=== PATIENT | female | born 1975 | race African-American/Black ===

== ENCOUNTER 2023-06-25 06:32 | Inpatient (IN) | payer MEDICAID ==
[2023-06-25] VITALS (12 sets, daily range): BP systolic 126–130; BP diastolic 82–85; PULSE 63–107; RESP 14–20; TEMP 98.2–98.9; O2SAT 95–99
[~2023-06-25] VITALS: Ht 177.8 cm; Wt 70.1 kg
[2023-06-25 07:27] LABS: Basophils # (auto) 0 10 ^3/uL (0-0.2); Basophils % (auto) 0.3 % (0.0-2.0); Eosinophils # (auto) 0 10 ^3/uL (0-0.8); Eosinophils % (auto) 0.2 % (0.0-7.0); Hematocrit 40.7 % (36.0-46.0); Hemoglobin 13.3 g/dL (12.2-16.2); Lymphocytes # (auto) 0.8 10 ^3/uL (0.4-5.4); Lymphocytes % (auto) 7.7 % (10.0-50.0); Mean Corpuscular Hemoglobin 28.5 pg (28.0-32.0); Mean Corpuscular Hgb Conc. 32.7 g/dL (32.0-36.0); Mean Corpuscular Volume 87.3 fL (80.0-100.0); Monocytes # (auto) 0.7 10 ^3/uL (0-1.3); Monocytes % (auto) 6.9 % (0.0-12.0); Neutrophils # (auto) 8.4 10 ^3/uL (1.6-8.6); Neutrophils % (auto) 84.9 % (37.0-80.0); Nucleated Red Blood Cells % 0.2 %; Red Blood Cells 4.66 10^6/uL (4.0-5.20); Red Cell Distribution Width 18.3 % (11.8-14.3); White Blood Cell 9.9 10^3/uL (4.4-10.8)
[2023-06-25 08:01] LABS: Alanine Aminotransferase 34 U/L (7-40); Albumin 4.4 g/dL (3.2-4.8); Alkaline Phosphatase 422 U/L (46-116); Anion Gap 6 (5-15); Aspartate Aminotransferase 29 U/L (13-40); BUN/Creatinine Ratio 21.5 (10.0-20.0); Blood Urea Nitrogen 17 mg/dL (9-23); Calcium 9.8 mg/dL (8.5-10.1); Carbon Dioxide 32 mmol/L (20-30); Chloride 97 mmol/L (98-107); Glucose 171 mg/dL (74-106); Potassium 4.2 mmol/L (3.5-5.1); Sodium 135 mmol/L (136-145)
[2023-06-25 08:02] LABS: Bilirubin, Total 0.6 mg/dL (0.2-1.0); Total Protein 6.9 g/dL (5.7-8.2)
[2023-06-25] MEDS ORDERED: cefTRIAXone 1GM/50ML D5W 50 ML IV ONE ×2 (08:30→11:01)
[2023-06-25] MEDS ORDERED: AZITHROMYCIN 500MG/ 250ML 250 ML IV ONE ×2 (08:30→11:01)
[2023-06-25] MEDS ORDERED: SENN8.6T83 PO (09:44)
[2023-06-25] MEDS ORDERED: ALBU108A5 PO (09:44)
[2023-06-25] MEDS ORDERED: ESCI5TAB20 PO (09:44)
[2023-06-25] MEDS ORDERED: OXYC15TA PO (09:44)
[2023-06-25] MEDS ORDERED: APIX5TAB PO (09:44)
[2023-06-25] MEDS ORDERED: TRAZ-228 PO (09:44)
[2023-06-25] MEDS ORDERED: LACT10SO3 PO (09:44)
[2023-06-25] MEDS ORDERED: DEXA2TAB PO (09:44)
[2023-06-25] MEDS ORDERED: PANT40TA57 PO (09:44)
[2023-06-25] MEDS ORDERED: ACETAMINOPHEN 325 MG TAB PO PRN (09:45)
[2023-06-25] MEDS ORDERED: MEGESTROL ACET 400MG/10ML ORAL SUSP PO ONE (09:45)
[2023-06-25] MEDS: SODIUM CHLORIDE 0.9% 1,000 ML IV SCH ×2 (09:45→15:07)
[2023-06-25] MEDS ORDERED: ALBUTEROL SULF 2.5 MG/0.5ML(0.5%) NEB SOLN NEB PRN (10:30)
[2023-06-25] MEDS ORDERED: IOHEXOL 350 MG/ML 100ML IJ ONE (10:37)
[2023-06-25] MEDS ORDERED: ONDANSETRON HCL 4 MG/2 ML VIAL ONE ×2 (10:59→16:06)
[2023-06-25] MEDS ORDERED: MORPHINE SULFATE 4 MG/ML SYR/VIAL ONE ×3 (11:00→23:55)
[2023-06-25] MEDS: ONDANSETRON HCL 4 MG/2 ML VIAL IV PRN ×2 (11:03→16:07)
[2023-06-25] MEDS ORDERED: ALBUTEROL SULF 2.5 MG/0.5ML(0.5%) NEB SOLN ONE ×3 (11:14→22:46)
[2023-06-25] MEDS ORDERED: IPRATROPIUM BROM 0.5 MG/2.5ML INH SOL ONE ×3 (11:15→22:46)
[2023-06-25] MEDS: MORPHINE SULFATE 4 MG/ML SYR/VIAL IV PRN ×3 (11:19→23:58)
[2023-06-25] MEDS: ALBUTEROL SULF 2.5 MG/0.5ML(0.5%) NEB SOLN NEB SCH ×3 (11:27→22:09)
[2023-06-25 14:48] LABS: Urine Bacteria NONE SEEN /hpf (None Seen); Urine Blood 3+ /uL (Negative); Urine Clarity HAZY (Clear); Urine Color Yellow (Yellow); Urine Mucus FEW (None Seen); Urine Protein, UAD 1+ (Negative); Urine Specific Gravity 1.027 (1.001-1.035); Urine Urobilinogen Normal (Negative); Urine WBC 2 /hpf (0 - 5); Urine pH 6.5 (5.0-8.0)
[2023-06-25] MEDS ORDERED: GADOTERATE MEG 10 MMOL/20ml INJ (0.5MMOL/ml) IV ONE (15:02)
[2023-06-25] MEDS: IPRATROPIUM BROM 0.5 MG/2.5ML INH SOL NEB SCH ×3 (15:05→22:09)
[2023-06-25] MEDS ORDERED: HYDROcodone-ACET 5/325MG TAB ONE ×2 (15:59→21:00)
[2023-06-25] MEDS: HYDROcodone-ACET 5/325MG TAB PO PRN ×2 (15:59→21:02)
[2023-06-25] MEDS ORDERED: OXYCODONE HCL 15 MG PO SCH (16:30)
[2023-06-25] MEDS ORDERED: oxyCODONE ER 10 MG TAB PO ONE ×2 (17:19→17:24)
[2023-06-25 20:35] LABS: INR 1.22 (0.9-1.15); Partial Thromboplastin Time 22.3 SEC (24.5-34.5); Prothrombin Time 12.6 sec (9.3-11.8)
[2023-06-25] MEDS ORDERED: APIXABAN 5 MG TAB ONE (22:04)
[2023-06-25] MEDS: APIXABAN 5 MG TAB PO SCH (22:07)
[2023-06-25] MEDS: MEGESTROL ACET 400MG/10ML ORAL SUSP PO SCH (22:07)
[2023-06-26] VITALS (20 sets, daily range): BP systolic 108–122; BP diastolic 67–82; PULSE 86–125; RESP 16–22; TEMP 97.8–99.1; O2SAT 93–100
[2023-06-26] MEDS ORDERED: oxyCODONE ER 10 MG TAB PO ONE (00:59)
[2023-06-26] MEDS ORDERED: oxyCODONE HCL 5MG TAB PO PRN (01:15)
[2023-06-26] MEDS ORDERED: oxyCODONE HCL 5MG TAB ONE ×2 (02:11→22:53)
[2023-06-26] MEDS: oxyCODONE HCL 5MG TAB PO SCH ×4 (02:18→23:17)
[2023-06-26] MEDS: IPRATROPIUM BROM 0.5 MG/2.5ML INH SOL NEB SCH ×6 (02:49→22:08)
[2023-06-26] MEDS: ALBUTEROL SULF 2.5 MG/0.5ML(0.5%) NEB SOLN NEB SCH ×6 (02:49→22:08)
[2023-06-26] MEDS ORDERED: ALBUTEROL SULF 2.5 MG/0.5ML(0.5%) NEB SOLN ONE ×3 (06:16→13:40)
[2023-06-26] MEDS ORDERED: IPRATROPIUM BROM 0.5 MG/2.5ML INH SOL ONE ×3 (06:17→13:40)
[2023-06-26] MEDS ORDERED: PANTOPRAZOLE 40 MG TAB PO ONE (06:37)
[2023-06-26] MEDS: HYDROcodone-ACET 5/325MG TAB PO PRN (06:38)
[2023-06-26] MEDS ORDERED: HYDROcodone-ACET 5/325MG TAB ONE (06:38)
[2023-06-26] MEDS: PANTOPRAZOLE 40 MG TAB PO SCH (06:39)
[2023-06-26 07:09] LABS: Basophils # (auto) 0 10 ^3/uL (0-0.2); Basophils % (auto) 0.2 % (0.0-2.0); Eosinophils # (auto) 0.3 10 ^3/uL (0-0.8); Eosinophils % (auto) 2.8 % (0.0-7.0); Hematocrit 38.9 % (36.0-46.0); Hemoglobin 12.5 g/dL (12.2-16.2); Lymphocytes # (auto) 0.7 10 ^3/uL (0.4-5.4); Lymphocytes % (auto) 7.8 % (10.0-50.0); Mean Corpuscular Hemoglobin 28.4 pg (28.0-32.0); Mean Corpuscular Hgb Conc. 32.3 g/dL (32.0-36.0); Mean Corpuscular Volume 87.9 fL (80.0-100.0); Monocytes # (auto) 0.7 10 ^3/uL (0-1.3); Monocytes % (auto) 7.3 % (0.0-12.0); Neutrophils # (auto) 7.8 10 ^3/uL (1.6-8.6); Neutrophils % (auto) 81.9 % (37.0-80.0); Nucleated Red Blood Cells % 0.1 %; Red Blood Cells 4.42 10^6/uL (4.0-5.20); Red Cell Distribution Width 18.6 % (11.8-14.3); White Blood Cell 9.5 10^3/uL (4.4-10.8)
[2023-06-26 07:11] LABS: Alanine Aminotransferase 32 U/L (7-40); Albumin 3.7 g/dL (3.2-4.8); Alkaline Phosphatase 331 U/L (46-116); Anion Gap 6 (5-15); Aspartate Aminotransferase 35 U/L (13-40); BUN/Creatinine Ratio 21.5 (10.0-20.0); Blood Urea Nitrogen 17 mg/dL (9-23); Calcium 8.7 mg/dL (8.5-10.1); Carbon Dioxide 30 mmol/L (20-30); Chloride 98 mmol/L (98-107); Glucose 174 mg/dL (74-106); Potassium 3.9 mmol/L (3.5-5.1); Sodium 134 mmol/L (136-145)
[2023-06-26 07:12] LABS: Bilirubin, Total 0.6 mg/dL (0.2-1.0); Total Protein 5.7 g/dL (5.7-8.2)
[2023-06-26] MEDS ORDERED: APIXABAN 5 MG TAB ONE ×2 (09:24→21:14)
[2023-06-26] MEDS ORDERED: oxyCODONE ER 20 MG TAB PO ONE (09:24)
[2023-06-26] MEDS ORDERED: CITALOPRAM HYDROBR 20 MG TAB ONE (09:25)
[2023-06-26] MEDS ORDERED: AZITHROMYCIN 500MG/ 250ML 250 ML IV ONE (09:25)
[2023-06-26] MEDS ORDERED: cefTRIAXone 1GM/50ML D5W 50 ML IV ONE (09:25)
[2023-06-26] MEDS: AZITHROMYCIN 500MG/ 250ML 250 ML IV SCH (09:32)
[2023-06-26] MEDS: APIXABAN 5 MG TAB PO SCH ×2 (09:33→21:26)
[2023-06-26] MEDS: cefTRIAXone 1GM/50ML D5W 50 ML IV SCH (09:34)
[2023-06-26] MEDS ORDERED: PATIENTS OWN MEDICATION (Escitalopram Oxalate 1 TAB) PO SCH (10:00)
[2023-06-26] MEDS: MEGESTROL ACET 400MG/10ML ORAL SUSP PO SCH ×3 (10:00→22:58)
[2023-06-26] MEDS: CITALOPRAM HYDROBR 20 MG TAB PO SCH (10:00)
[2023-06-26] MEDS ORDERED: APIXABAN 5 MG TAB PO ONE (11:30)
[2023-06-26] MEDS ORDERED: HYDROmorphone HCL 2 MG/ML VL/or syr ONE ×2 (13:27→20:56)
[2023-06-26] MEDS: HYDROmorphone HCL 2 MG/ML VL/or syr IV PRN ×2 (13:33→21:26)
[2023-06-26] MEDS ORDERED: OXYCODONE W/ ACETAMINOPHEN 5/325MG TABLET ONE (22:49)
[2023-06-27] VITALS (20 sets, daily range): BP systolic 106–125; BP diastolic 71–84; PULSE 10–125; RESP 17–26; TEMP 97.9–98.6; O2SAT 90–100
[2023-06-27] MEDS: IPRATROPIUM BROM 0.5 MG/2.5ML INH SOL NEB SCH ×6 (02:01→22:16)
[2023-06-27] MEDS: ALBUTEROL SULF 2.5 MG/0.5ML(0.5%) NEB SOLN NEB SCH ×6 (02:01→22:16)
[2023-06-27] MEDS: HYDROmorphone HCL 2 MG/ML VL/or syr IV PRN ×3 (02:55→16:51)
[2023-06-27] MEDS: PANTOPRAZOLE 40 MG TAB PO SCH (05:42)
[2023-06-27] MEDS: oxyCODONE HCL 5MG TAB PO SCH ×3 (05:45→22:00)
[2023-06-27 06:41] LABS: Alanine Aminotransferase 26 U/L (7-40); Albumin 3.7 g/dL (3.2-4.8); Alkaline Phosphatase 307 U/L (46-116); Anion Gap 7 (5-15); Aspartate Aminotransferase 37 U/L (13-40); BUN/Creatinine Ratio 15.8 (10.0-20.0); Bilirubin, Total 0.6 mg/dL (0.2-1.0); Blood Urea Nitrogen 12 mg/dL (9-23); Calcium 8.6 mg/dL (8.7-10.4); Carbon Dioxide 28 mmol/L (20-30); Chloride 96 mmol/L (98-107); Glucose 132 mg/dL (74-106); Potassium 3.9 mmol/L (3.5-5.1); Sodium 131 mmol/L (136-145); Total Protein 5.9 g/dL (5.7-8.2)
[2023-06-27 07:37] LABS: Hematocrit 37.8 % (36.0-46.0); Hemoglobin 12.2 g/dL (12.2-16.2); Mean Corpuscular Hemoglobin 28.3 pg (28.0-32.0); Mean Corpuscular Hgb Conc. 32.2 g/dL (32.0-36.0); Mean Corpuscular Volume 87.9 fL (80.0-100.0); Red Cell Distribution Width 18.2 % (11.8-14.3); White Blood Cell 8.5 10^3/uL (4.4-10.8)
[2023-06-27 07:45] LABS: Band Neutrophils % (manual) 0; Basophils % (manual) 0 (0.0-2.0); Blast Cells 0; Metamyelocytes % 0; Myelocytes % 0; Promyelocytes % 0; Reactive Lymphocytes 0
[2023-06-27 08:56] LABS: Eosinophils % (manual) 1 (0-7); Lymphocytes % (manual) 8 (10.0-50.0); Monocytes % (manual) 5 (0-12)
[2023-06-27 08:57] LABS: Platelet Estimate Decreased
[2023-06-27] MEDS: APIXABAN 5 MG TAB PO SCH (09:24)
[2023-06-27] MEDS: CITALOPRAM HYDROBR 20 MG TAB PO SCH (09:25)
[2023-06-27] MEDS: cefTRIAXone 1GM/50ML D5W 50 ML IV SCH (09:26)
[2023-06-27] MEDS ORDERED: guaiFENesin-DM 100/10mg/5ml SYR PO PRN (10:30)
[2023-06-27] MEDS: LACTULOSE 20Gm/30ML SOLN PO ONE ×2 (10:30→21:01)
[2023-06-27] MEDS: MEGESTROL ACET 400MG/10ML ORAL SUSP PO SCH ×2 (10:55→22:00)
[2023-06-27] MEDS: AZITHROMYCIN 500MG/ 250ML 250 ML IV SCH (10:59)
[2023-06-27] MEDS ORDERED: methylPREDNISolone SOD SUCC 40 MG/ML VL IV ONE (11:45)
[2023-06-27] MEDS: HYDROcodone-ACET 5/325MG TAB PO PRN (13:43)
[2023-06-27] MEDS ORDERED: DOCUSATE SOD 100 MG CAP PO PRN (17:15)
[2023-06-28] VITALS (21 sets, daily range): BP systolic 120–129; BP diastolic 74–88; PULSE 84–126; RESP 14–22; TEMP 97.2–98.5; O2SAT 91–99
[2023-06-28] MEDS: methylPREDNISolone SOD SUCC 40 MG/ML VL IV SCH ×3 (00:13→22:29)
[2023-06-28] MEDS: APIXABAN 5 MG TAB PO SCH ×3 (00:13→22:30)
[2023-06-28] MEDS: HYDROmorphone HCL 2 MG/ML VL/or syr IV PRN ×5 (00:14→20:26)
[2023-06-28] MEDS: IPRATROPIUM BROM 0.5 MG/2.5ML INH SOL NEB SCH ×6 (02:11→23:03)
[2023-06-28] MEDS: ALBUTEROL SULF 2.5 MG/0.5ML(0.5%) NEB SOLN NEB SCH ×6 (02:11→23:04)
[2023-06-28 07:16] LABS: Alanine Aminotransferase 26 U/L (7-40); Albumin 3.8 g/dL (3.2-4.8); Alkaline Phosphatase 324 U/L (46-116); Anion Gap 7 (5-15); Aspartate Aminotransferase 50 U/L (13-40); BUN/Creatinine Ratio 16.9 (10.0-20.0); Blood Urea Nitrogen 12 mg/dL (9-23); Calcium 8.6 mg/dL (8.7-10.4); Carbon Dioxide 27 mmol/L (20-30); Chloride 99 mmol/L (98-107); Glucose 255 mg/dL (74-106); Magnesium 2.1 mg/dL (1.6-2.6); Potassium 4.2 mmol/L (3.5-5.1); Sodium 133 mmol/L (136-145)
[2023-06-28 07:17] LABS: Bilirubin, Total 0.5 mg/dL (0.2-1.0); Total Protein 5.9 g/dL (5.7-8.2)
[2023-06-28 07:18] LABS: Basophils # (auto) 0 10 ^3/uL (0-0.2); Eosinophils # (auto) 0 10 ^3/uL (0-0.8); Hematocrit 33.9 % (36.0-46.0); Hemoglobin 11.3 g/dL (12.2-16.2); Lymphocytes # (auto) 0.3 10 ^3/uL (0.4-5.4); Lymphocytes % (auto) 4.2 % (10.0-50.0); Mean Corpuscular Hemoglobin 28.8 pg (28.0-32.0); Mean Corpuscular Hgb Conc. 33.2 g/dL (32.0-36.0); Mean Corpuscular Volume 86.7 fL (80.0-100.0); Monocytes # (auto) 0.2 10 ^3/uL (0-1.3); Monocytes % (auto) 2.7 % (0.0-12.0); Neutrophils # (auto) 6.2 10 ^3/uL (1.6-8.6); Neutrophils % (auto) 93.1 % (37.0-80.0); Red Blood Cells 3.91 10^6/uL (4.0-5.20); Red Cell Distribution Width 17.6 % (11.8-14.3); White Blood Cell 6.7 10^3/uL (4.4-10.8)
[2023-06-28] MEDS: oxyCODONE HCL 5MG TAB PO SCH ×3 (07:36→22:30)
[2023-06-28] MEDS: PANTOPRAZOLE 40 MG TAB PO SCH (07:37)
[2023-06-28] MEDS: CITALOPRAM HYDROBR 20 MG TAB PO SCH (09:55)
[2023-06-28] MEDS: cefTRIAXone 1GM/50ML D5W 50 ML IV SCH (09:56)
[2023-06-28] MEDS: AZITHROMYCIN 500MG/ 250ML 250 ML IV SCH (13:12)
[2023-06-28] MEDS: ONDANSETRON HCL 4 MG/2 ML VIAL IV PRN ×2 (14:10→20:25)
[2023-06-28] MEDS: MEGESTROL ACET 400MG/10ML ORAL SUSP PO SCH ×2 (15:50→22:00)
[2023-06-28] MEDS ORDERED: DEXTROSE (50%) 50ML SYRG IV PRN (17:15)
[2023-06-28] MEDS: ACCU-CHEK COMFORT CURVE STRIP VI SCH (22:38)
[2023-06-28] MEDS: InsuLIN REG 1unit/0.01ml Soln (100units/ml) SC SCH (22:39)
[2023-06-29] VITALS (20 sets, daily range): BP systolic 120–134; BP diastolic 77–87; PULSE 68–125; RESP 16–22; TEMP 97.3–98.2; O2SAT 90–99
[2023-06-29] MEDS: IPRATROPIUM BROM 0.5 MG/2.5ML INH SOL NEB SCH ×5 (02:25→19:21)
[2023-06-29] MEDS: ALBUTEROL SULF 2.5 MG/0.5ML(0.5%) NEB SOLN NEB SCH ×5 (02:25→19:21)
[2023-06-29] MEDS: ONDANSETRON HCL 4 MG/2 ML VIAL IV PRN ×3 (04:52→22:19)
[2023-06-29] MEDS: HYDROmorphone HCL 2 MG/ML VL/or syr IV PRN ×3 (04:52→20:34)
[2023-06-29] MEDS: PANTOPRAZOLE 40 MG TAB PO SCH (06:41)
[2023-06-29] MEDS: ACCU-CHEK COMFORT CURVE STRIP VI SCH ×4 (06:42→22:21)
[2023-06-29] MEDS: oxyCODONE HCL 5MG TAB PO SCH ×3 (06:42→22:20)
[2023-06-29] MEDS: INSULIN LANTUS (GLARGINE) 1 /0.01ml (100units/ml) SC SCH (06:45)
[2023-06-29] MEDS: InsuLIN REG 1unit/0.01ml Soln (100units/ml) SC SCH ×4 (06:46→22:30)
[2023-06-29 06:58] LABS: Basophils # (auto) 0 10 ^3/uL (0-0.2); Basophils % (auto) 0.2 % (0.0-2.0); Eosinophils # (auto) 0 10 ^3/uL (0-0.8); Eosinophils % (auto) 0.1 % (0.0-7.0); Hematocrit 32.4 % (36.0-46.0); Hemoglobin 10.7 g/dL (12.2-16.2); Lymphocytes # (auto) 0.5 10 ^3/uL (0.4-5.4); Lymphocytes % (auto) 4.4 % (10.0-50.0); Mean Corpuscular Volume 87.8 fL (80.0-100.0); Monocytes # (auto) 0.5 10 ^3/uL (0-1.3); Monocytes % (auto) 5.3 % (0.0-12.0); Neutrophils # (auto) 9.3 10 ^3/uL (1.6-8.6); Nucleated Red Blood Cells % 0.1 %; Red Blood Cells 3.69 10^6/uL (4.0-5.20); Red Cell Distribution Width 17.9 % (11.8-14.3); White Blood Cell 10.3 10^3/uL (4.4-10.8)
[2023-06-29 07:11] LABS: Alanine Aminotransferase 25 U/L (7-40); Albumin 3.7 g/dL (3.2-4.8); Alkaline Phosphatase 321 U/L (46-116); Anion Gap 6 (5-15); Aspartate Aminotransferase 31 U/L (13-40); BUN/Creatinine Ratio 14.9 (10.0-20.0); Blood Urea Nitrogen 11 mg/dL (9-23); Calcium 8.8 mg/dL (8.7-10.4); Carbon Dioxide 29 mmol/L (20-30); Chloride 100 mmol/L (98-107); Glucose 293 mg/dL (74-106); Magnesium 2.1 mg/dL (1.6-2.6); Potassium 4.3 mmol/L (3.5-5.1); Sodium 135 mmol/L (136-145)
[2023-06-29 07:12] LABS: Bilirubin, Total 0.4 mg/dL (0.2-1.0); Total Protein 5.8 g/dL (5.7-8.2)
[2023-06-29] MEDS: cefTRIAXone 1GM/50ML D5W 50 ML IV SCH (09:33)
[2023-06-29] MEDS: CITALOPRAM HYDROBR 20 MG TAB PO SCH (09:33)
[2023-06-29] MEDS: methylPREDNISolone SOD SUCC 40 MG/ML VL IV SCH ×2 (09:33→22:19)
[2023-06-29] MEDS: APIXABAN 5 MG TAB PO SCH ×2 (09:33→22:20)
[2023-06-29] MEDS: MEGESTROL ACET 400MG/10ML ORAL SUSP PO SCH ×2 (10:32→22:19)
[2023-06-29] MEDS: AZITHROMYCIN 500MG/ 250ML 250 ML IV SCH (10:34)
[2023-06-29] MEDS ORDERED: LEVO750T40 PO (10:37)
[2023-06-29] MEDS ORDERED: PRED20TA2 PO (10:37)
[2023-06-29] MEDS ORDERED: FLUT1AER3 IN (10:37)
[2023-06-29] MEDS ORDERED: METF-370 PO (10:37)
[2023-06-29 17:05] LABS: Base Excess 5.8 mmol/L (-2.0-2.0)
[2023-06-30] VITALS (13 sets, daily range): BP systolic 136–142; BP diastolic 82–100; PULSE 84–115; RESP 16–20; TEMP 97.4–97.7; O2SAT 88–100
[2023-06-30] MEDS: ALBUTEROL SULF 2.5 MG/0.5ML(0.5%) NEB SOLN NEB SCH ×4 (00:11→10:28)
[2023-06-30] MEDS: IPRATROPIUM BROM 0.5 MG/2.5ML INH SOL NEB SCH ×4 (00:12→10:28)
[2023-06-30] MEDS: HYDROmorphone HCL 2 MG/ML VL/or syr IV PRN ×2 (04:32→10:49)
[2023-06-30 05:37] LABS: Basophils # (auto) 0 10 ^3/uL (0-0.2); Basophils % (auto) 0.1 % (0.0-2.0); Eosinophils # (auto) 0 10 ^3/uL (0-0.8); Hemoglobin 10.4 g/dL (12.2-16.2); Lymphocytes # (auto) 0.4 10 ^3/uL (0.4-5.4); Lymphocytes % (auto) 3.4 % (10.0-50.0); Mean Corpuscular Hemoglobin 28.6 pg (28.0-32.0); Mean Corpuscular Hgb Conc. 32.6 g/dL (32.0-36.0); Mean Corpuscular Volume 87.7 fL (80.0-100.0); Monocytes # (auto) 0.8 10 ^3/uL (0-1.3); Monocytes % (auto) 6.8 % (0.0-12.0); Neutrophils % (auto) 89.7 % (37.0-80.0); Red Blood Cells 3.65 10^6/uL (4.0-5.20); Red Cell Distribution Width 18.1 % (11.8-14.3); White Blood Cell 11.1 10^3/uL (4.4-10.8)
[2023-06-30 05:58] LABS: Chloride 102 mmol/L (98-107); Potassium 4.2 mmol/L (3.5-5.1); Sodium 139 mmol/L (136-145)
[2023-06-30 06:00] LABS: Anion Gap 5 (5-15); Carbon Dioxide 32 mmol/L (20-30)
[2023-06-30 06:01] LABS: Calcium 8.9 mg/dL (8.7-10.4)
[2023-06-30 06:04] LABS: Blood Urea Nitrogen 19 mg/dL (9-23)
[2023-06-30 06:05] LABS: BUN/Creatinine Ratio 27.9 (10.0-20.0); Glucose 179 mg/dL (74-106)
[2023-06-30 06:06] LABS: Alkaline Phosphatase 303 U/L (46-116)
[2023-06-30 06:07] LABS: Alanine Aminotransferase 26 U/L (7-40); Albumin 3.7 g/dL (3.2-4.8); Aspartate Aminotransferase 20 U/L (13-40)
[2023-06-30 06:08] LABS: Bilirubin, Total 0.4 mg/dL (0.2-1.0); Total Protein 5.7 g/dL (5.7-8.2)
[2023-06-30] MEDS: INSULIN LANTUS (GLARGINE) 1 /0.01ml (100units/ml) SC SCH (06:22)
[2023-06-30] MEDS: InsuLIN REG 1unit/0.01ml Soln (100units/ml) SC SCH ×2 (06:23→11:48)
[2023-06-30] MEDS: oxyCODONE HCL 5MG TAB PO SCH (06:24)
[2023-06-30] MEDS: ACCU-CHEK COMFORT CURVE STRIP VI SCH ×2 (06:24→11:48)
[2023-06-30] MEDS: PANTOPRAZOLE 40 MG TAB PO SCH (06:25)
[2023-06-30] MEDS: cefTRIAXone 1GM/50ML D5W 50 ML IV SCH (09:05)
[2023-06-30] MEDS: MEGESTROL ACET 400MG/10ML ORAL SUSP PO SCH (09:05)
[2023-06-30] MEDS: APIXABAN 5 MG TAB PO SCH (09:06)
[2023-06-30] MEDS: methylPREDNISolone SOD SUCC 40 MG/ML VL IV SCH (09:53)
[2023-06-30] MEDS: CITALOPRAM HYDROBR 20 MG TAB PO SCH (09:53)
[2023-06-30] MEDS ORDERED: AZITHROMYCIN 250 MG TAB PO SCH (10:00)
[2023-06-30] MEDS: ONDANSETRON HCL 4 MG/2 ML VIAL IV PRN (10:41)
== END 2023-06-30 13:56 | disposition home or self-care (01) | DRG 136 ==
LOC: ER 06:32 → OVERFLOW 09:39 → WEST WING 15:21
PROVIDERS: ADMIT Internal Medicine Pulmonary Disease; ATTEND Internal Medicine Pulmonary Disease
DX: C34.90 Malignant neoplasm of unspecified part of unspecified bronchus or lung (principal); I26.99 Other pulmonary embolism without acute cor pulmonale; J96.01 Acute respiratory failure with hypoxia; J15.69 Pneumonia due to other Gram-negative bacteria; C79.51 Secondary malignant neoplasm of bone; J15.9 Unspecified bacterial pneumonia; N17.9 Acute kidney failure, unspecified; J90 Pleural effusion, not elsewhere classified; I82.441 Acute embolism and thrombosis of right tibial vein; C79.31 Secondary malignant neoplasm of brain; J98.11 Atelectasis; Z86.718 Personal history of other venous thrombosis and embolism; Z85.118 Personal history of other malignant neoplasm of bronchus and lung; Z79.01 Long term (current) use of anticoagulants; Z87.891 Personal history of nicotine dependence; Z83.3 Family history of diabetes mellitus; R74.8 Abnormal levels of other serum enzymes; Z80.1 Family history of malignant neoplasm of trachea, bronchus and lung; K59.00 Constipation, unspecified; Z86.711 Personal history of pulmonary embolism; C78.7 Secondary malignant neoplasm of liver and intrahepatic bile duct; M84.48XA Pathological fracture, other site, initial encounter for fracture
CPT/HCPCS: 36415; 36600; 70491; 70553; 71045; 71250; 71275; 74176; 74177; 76705; 78306; 80053; 81001; 82805; 82962; 83036; 83605; 83735; 83880; 84443; 85007; 85025; 85027; 85379; 85610; 85730; 87040; 93005; 93306; 93970; 94640; 97110; 97116; 97163; 97530; 99291; G0378; J1815; J2405

== ENCOUNTER 2023-07-05 18:35 | Emergency (ER) | payer MEDICAID ==
[~2023-07-05 18:35] MED LIST: ALBU108A5 PO; APIX5TAB PO; DEXA2TAB PO; FLUT1AER3 IN; LACT10SO3 PO; LEVO750T40 PO; METF-370 PO; OXYC15TA PO; PANT40TA57 PO; PRED20TA2 PO; SENN8.6T83 PO; TRAZ-228 PO
== END 2023-07-05 21:12 | disposition left against medical advice (07) ==
LOC: ER 18:35
DX: R04.0 Epistaxis (principal); Z53.21 Procedure and treatment not carried out due to patient leaving prior to being seen by health care provider